=== PATIENT | female | born 1975 | race Caucasian/White ===

== ENCOUNTER 2017-09-07 01:05 | Outpatient (CLI) | payer BC | END 2017-09-07 01:06 | disposition home or self-care (01) | LOC: BICRAD 01:05 | PROVIDERS: ATTEND Internal Medicine Rheumatology | DX: M47.817 Spondylosis without myelopathy or radiculopathy, lumbosacral region (principal); M43.17 Spondylolisthesis, lumbosacral region | CPT/HCPCS: 72100 ==

== ENCOUNTER 2017-11-30 10:21 | Outpatient (CLI) | payer BC | END 2017-11-30 10:22 | disposition home or self-care (01) | LOC: BICRAD 10:21 | PROVIDERS: ATTEND Specialist | DX: M43.17 Spondylolisthesis, lumbosacral region (principal) | CPT/HCPCS: 72100 ==

== ENCOUNTER 2017-12-22 14:42 | Outpatient (CLI) | payer BC ==
--- NOTE | 2017-12-22 15:40 | MRI ---
LUMBAR SPINE MRI WITHOUT CONTRAST: Date: 12/22/17 COMPARISON: None. HISTORY: Bilateral leg pain and weakness, acquired spondylolisthesis of lumbosacral region. TECHNIQUE: Multiplanar, multisequence MR imaging of the lumbar spine is provided without contrast. FINDINGS: The sagittal STIR imaging demonstrates no focal area of osseous marrow edema. At the L5-S1 level, there is anterolisthesis measuring 7-8 mm. Bilateral L5 pars defects are present. Assuming five lumbar-type vertebral bodies, conus medullaris terminates at T12-L1. T12-L1: No central canal or neural foraminal stenosis. Intervertebral disc height and signal intensity within normal limits. L1-2: Intervertebral disc height and signal intensity is within normal limits. No significant central canal or neural foraminal stenosis. L2-3: Intervertebral disc height and signal intensity within normal limits. No central canal or neural fora osvaldo stenosis. L3-4: Mild bilateral facet hypertrophy. No significant central canal or neural foraminal stenosis. L4-5: Bilateral facet hypertrophy and hypertrophy of the ligamentum flavum noted, left greater than right. Intervertebral disc height and signal intensity is within normal limits. There is no significant neur al foraminal stenosis on either side. There is a focus of T2 hyperintensity along the medial aspect o f the facet joint on the left measuring 5-6 mm, which may represent a small synovial cyst. L5-S1: There is disc desiccation and disc space narrowing with minimal disc bulge causing no significant harley tral canal stenosis. There is moderate/severe bilateral neural foraminal stenosis. The imaged retroperitoneal structures demonstrate no acute findings. IMPRESSION: Bilateral L5 pars defects with anterolisthesis of L5 on S1 and bilateral significant L5-S1 neural for aminal stenosis. POS: [facility]
== END 2017-12-22 14:43 | disposition home or self-care (01) ==
LOC: TBSIIMAG 14:42
PROVIDERS: ATTEND Specialist
DX: M43.17 Spondylolisthesis, lumbosacral region (principal); M99.83 Other biomechanical lesions of lumbar region
CPT/HCPCS: 72148

== ENCOUNTER 2018-06-08 07:38 | Outpatient (CLI) | payer BC ==
--- NOTE | 2018-06-08 10:09 | CT ---
CT BRAIN WITHOUT CONTRAST: HISTORY: Frontal headache, presyncope. FINDINGS: No evidence of infarct, hemorrhage, midline shift, or abnormal extraaxial fluid collections are seen. The ventricular size is normal and the basilar cisterns patent. The bony calvarium is intact. The visualized paranasal sinuses and mastoid air cells are well aerated. IMPRESSION: No CT evidence of acute intracranial process. POS: [facility]
== END 2018-06-08 07:39 | disposition home or self-care (01) ==
LOC: BICCT 07:38
PROVIDERS: ATTEND Family Medicine
DX: R55 Syncope and collapse (principal); R51 Headache
CPT/HCPCS: 70450

== ENCOUNTER 2019-05-24 14:27 | Outpatient (CLI) | payer BC ==
--- NOTE | 2019-05-31 13:16 | MMO ---
Bilateral MAMMO Bilat Screen [facility]DI[facility]FUAD. CLINICAL HISTORY: Patient is 43 years old and is seen for screening. The patient has the following family history of breast cancer: mother, at age 66. The patient has no personal history of cancer. VIEWS: The views performed were: bilateral craniocaudal; bilateral craniocaudal with tomosynthesis; bilateral mediolateral oblique; and bilateral mediolateral oblique with tomosynthesis. FILMS COMPARED: The present examination has been compared to a prior imaging study performed at [facility] on 08/24/2015. This study has been interpreted with the assistance of computer-aided detection. MAMMOGRAM FINDINGS: The breasts are almost entirely fat. There are no suspicious masses, suspicious calcifications, or new areas of architectural distortion. IMPRESSION: THERE IS NO MAMMOGRAPHIC EVIDENCE OF MALIGNANCY. A ROUTINE FOLLOW-UP MAMMOGRAM IN 1 YEAR IS RECOMMENDED. THE RESULTS OF THIS EXAM WERE SENT TO THE PATIENT. ACR BI-RADS Category 1 - Negative MAMMOGRAPHY NOTE: 1. A negative mammogram report should not delay a biopsy if a dominant of clinically suspicious mass is present. 2. Approximately 10% to 15% of breast cancers are not detected by mammography. 3. Adenosis and dense breasts may obscure an underlying neoplasm. Reported by: GT BOB MD Electonically Signed: [id number]
== END 2019-05-24 14:28 | disposition home or self-care (01) ==
LOC: BICMAMMO 14:27
PROVIDERS: ATTEND Physician Assistant
DX: Z12.31 Encounter for screening mammogram for malignant neoplasm of breast (principal); Z80.3 Family history of malignant neoplasm of breast
CPT/HCPCS: 77063; 77067

== ENCOUNTER 2019-09-17 15:32 | Emergency (ER) | payer BC ==
--- NOTE | 2019-09-17 16:36 | CT ---
EXAM: CT brain without contrast HISTORY: Fall with head trauma COMPARISON: 06/08/2018 TECHNIQUE: Multiple contiguous axial images were obtained and a CT of the brain without contrast. FINDINGS: The brain is normal in morphology and attenuation without focal lesions or confluent areas of infarction. There is no evidence of hydrocephalus, intracranial hemorrhage, or extra-axial fluid collection. A round well-circumscribed subcutaneous mass is seen in the right parietal scalp. The underlying calv arium is unremarkable. The visualized paranasal sinuses and mastoid air cells are well aerated. IMPRESSION: No evidence of acute intracranial abnormality
== END 2019-09-17 16:49 | disposition home or self-care (01) ==
LOC: ERS 15:32
DX: S00.01XA Abrasion of scalp, initial encounter (principal); I10 Essential (primary) hypertension; F32.9 Major depressive disorder, single episode, unspecified; F98.8 Other specified behavioral and emotional disorders with onset usually occurring in childhood and adolescence; Z79.899 Other long term (current) drug therapy; W19.XXXA Unspecified fall, initial encounter
CPT/HCPCS: 70450

== ENCOUNTER 2019-09-20 15:40 | Outpatient (CLI) | payer BC | END 2019-09-20 15:41 | disposition home or self-care (01) | LOC: CTENTCT 15:40 | PROVIDERS: ATTEND Specialist | DX: J32.8 Other chronic sinusitis (principal) | CPT/HCPCS: 70486 ==

== ENCOUNTER 2020-05-04 16:00 | Inpatient (IN) | payer OTHER ==
[2020-05-06 12:38] VITALS: BMI 68.7
[2020-05-07] MEDS ORDERED: Fentanyl 100 MCG/2 ML VIAL ONE ×3 (06:56→09:58)
[2020-05-07] MEDS ORDERED: Bupivacaine 0.25% HCL 30 ML VIAL ONE (06:57)
[2020-05-07] MEDS ORDERED: Lidocaine 1% w/Epinephrine 1:100K 20 ML VIAL ONE (06:57)
[2020-05-07] MEDS ORDERED: Levofloxacin 500 mg/D5W 100 ml Premix Bag ONE (06:59)
[2020-05-07] MEDS ORDERED: Scopolamine 1.5 mg/72 hour Patch ONE (07:23)
[2020-05-07] MEDS ORDERED: Midazolam HCl 2 mg/2 ml Vial ONE (07:24)
[2020-05-07] MEDS ORDERED: Famotidine/PF 20 mg/2ml Vial ONE ×2 (07:24→07:31)
[2020-05-07] MEDS ORDERED: SUGAMMADEX SODIUM 500 MG/5 ML VIAL ONE ×2 (08:52→08:55)
[2020-05-07] MEDS ORDERED: Ondansetron HCl/PF 4 MG/2 ML Vial IVP PRN (09:09)
[2020-05-07] MEDS ORDERED: Meperidine HCl/PF 25 MG/ML VIAL SLOW IVP PRN (09:09)
[2020-05-07] MEDS ORDERED: diphenhydrAMINE 25 MG CAP PO PRN (10:21)
[2020-05-07] MEDS ORDERED: Ondansetron PF 4 MG/2 ML Vial IVP PRN ×2 (10:21→11:11)
[2020-05-07] MEDS ORDERED: diphenhydrAMINE 50 MG/ML VIAL IM PRN (10:21)
[2020-05-07] MEDS ORDERED: fentaNYL Citrate/PF 2,000 MCG in Sodium Chloride 0.9% 60 ML IV PRN (10:21)
[2020-05-07] MEDS ORDERED: diphenhydrAMINE 50 MG/ML VIAL IVP PRN ×2 (10:21→11:11)
[2020-05-07] MEDS ORDERED: Naloxone HCl 0.4 mg/ml Vial IV PRN (10:21)
[2020-05-07] MEDS ORDERED: Promethazine HCl 25 MG/ML VIAL IM PRN ×2 (10:21→11:11)
[2020-05-07] MEDS ORDERED: Zolpidem Tartrate 5 MG TAB PO PRN (10:21)
[2020-05-07] MEDS ORDERED: Communication Order-Pharmacy FS SCH (10:30)
[2020-05-07] MEDS ORDERED: hydrALAZINE 20 MG/ML VIAL SLOW IVP PRN (11:11)
[2020-05-07] MEDS ORDERED: Albuterol Sulfate 1.25 MG/3 ML NEB INH PRN (11:11)
[2020-05-07] MEDS ORDERED: Dextrose 5% in Water 1,000 ML IV PRN (11:11)
[2020-05-07] MEDS ORDERED: Hydrocodone-Acetamin 15 ML UDCUP PO PRN (11:11)
[2020-05-07] MEDS ORDERED: Dextrose 50% Abboject 50 ML SYRINGE SLOW IVP PRN (11:11)
[2020-05-07] MEDS ORDERED: EPHEDRINE 25 MG/5 ML SYRINGE ONE (11:22)
[2020-05-07] MEDS ORDERED: Ondansetron PF 4 MG/2 ML Vial ONE (11:22)
[2020-05-07] MEDS ORDERED: Dexamethasone 20 MG/5 ML VIAL ONE (11:22)
[2020-05-07] MEDS ORDERED: diphenhydrAMINE 50 MG/ML VIAL ONE (11:22)
[2020-05-07] MEDS ORDERED: Succinylcholine Chloride 20 MG/ML 10 ml SYRINGE FS ONE (11:22)
[2020-05-07] MEDS ORDERED: Ketorolac Tromethamine 30 MG/ML VIAL ONE (11:22)
[2020-05-07] MEDS ORDERED: Rocuronium Bromide 10 MG/ML (10ML VIAL) ONE (11:22)
[2020-05-07] MEDS ORDERED: PROPOFOL 200 MG/20 ML VIAL ONE (11:22)
[2020-05-07] MEDS ORDERED: PHENYLEPHRINE-NS 100 MCG/ML 10 ML SYRINGE ONE (11:22)
--- NOTE | 2020-05-07 11:47 | OP ---
DATE OF PROCEDURE: 05/07/2020 PREOPERATIVE DIAGNOSES: 1. Morbid obesity, body mass index of 68. 2. Hypertension. POSTOPERATIVE DIAGNOSES: 1. Morbid obesity, body mass index of 68. 2. Hypertension. PROCEDURES PERFORMED: 1. Laparoscopic sleeve gastrectomy with [place] staple line reinforcement and 38-Sami bougie. 2. Esophagogastroduodenoscopy. ANESTHESIA: General. ESTIMATED BLOOD LOSS: 50 mL. COMPLICATIONS: None. FINDINGS: Normal postoperative EGD. TECHNIQUE: The patient was taken to the operating room and laid supine on the operating room table. After general anesthetic was obtained, arms and legs were double strapped to bariatric table. The abdomen was shaved, prepped, and draped in a sterile fashion. OG tube had been used to decompress the stomach. Left subcostal 5-mm Optiview trocar placed in usual fashion. High-flow pneumoperitoneum was obtained. Left and right abdominal 12 mm ports as well as a right subcostal 5-mm port were placed under direct visualization. Alexus was brought in through 5-mm incision that was made at the xiphoid and used to raise the liver off the GE junction. Short gastrics were taken down from mid body of stomach to left berto of diaphragm using the LigaSure. The posterior fundus, angle of His, and left berto were completely dissected. Short gastrics were then taken down to a distance of 6 cm proximal to the pylorus. OG tube was removed, and 38 bougie was brought and its tip left in the antrum of the stomach. Multiple loads of [place] stapling device was used to form the sleeve. The 1st was fired up at a distance of 6 cm proximal to the pylorus, angled up towards the incisura. Multiple loads were then fired up along the bougie. Stomach was completely transected at the angle of His. The stomach was removed from the left abdominal incision and the fascial defect was closed using GraNee needle and 0 Vicryl tie. A few bleeders on the staple line were clipped using laparoscopic clip. EGD scope was passed through the esophagus, stomach to the level of duodenum without obstruction. There was no air leakage or bleeding on the staple line. No stricture at the incisura or involvement of the GE junction with the staple line. EGD scope was used to decompress the stomach and was pulled and removed. Alexus removed without injury. All port sites were infiltrated and with local anesthetic and removed under direct visualization without bleeding. Pneumoperitoneum was let down. Vicryl was used to close the fascial defect from the left abdominal incisions. All incisions were irrigated and closed using 4-0 Monocryl and Dermabond. The patient was sent to Recovery in stable condition. All instrument counts, needle counts, and lap counts were correct. Job ID: [id number]
[2020-05-07] MEDS: D5 1/2 NS w/20 mEq KCL 1,000 ML IV SCH ×3 (12:52→20:14)
[2020-05-07] MEDS: Nabumetone 500 MG TAB PO SCH (20:15)
[2020-05-07] MEDS ORDERED: Enoxaparin Sodium 40 MG/0.4 ML SYRINGE SC SCH (21:00)
[2020-05-08 05:18] LABS: #Lymphocytes 1.7 thou/uL (1.20-3.40); #Monocytes 0.6 thou/uL (0.11-0.59); #Neutrophils 9.1 thou/uL (1.40-6.50); %Basophils 0.1 % (0.0-1.0); %Eosinophils 0.1 % (0.0-10.0); %Lymphocytes 14.7 % (21.0-51.0); %Monocytes 5.5 % (0.0-10.0); %Neutrophils 79.6 % (42.0-75.0); Hemoglobin 12.8 g/dL (12.0-16.0); Mean Corpuscular Hemoglobin 30.2 pg (27.0-31.0); Mean Corpuscular Volume 94.4 fL (78.0-98.0); Mean Platelet Volume 8.2 fL (7.4-10.4); Platelet Count 343 thou/uL (130-400); RBC Distribution Width 12.8 % (11.5-14.5); Red Blood Cell (RBC) Count 4.25 mill/uL (4.20-5.40); White Blood Cell (WBC) Count 11.5 thou/uL (4.8-10.8)
[2020-05-08 05:39] LABS: Anion Gap 13 mmol/L (10-20); BUN (Urea Nitrogen) 7 mg/dL (7.0-18.7); Calc. Creatinine Clearance 238 mL/min (70-130); Carbon Dioxide 24 mmol/L (22-29); Chloride 104 mmol/L (98-107); Estimated GFR-MDRD 74; Glucose 129 mg/dL (70-105); Potassium 4.7 mmol/L (3.5-5.1); Sodium 136 mmol/L (136-145)
--- NOTE | 2020-05-08 08:33 | DIS ---
DATE OF ADMISSION: 05/07/2020 DATE OF DISCHARGE: 05/08/2020 ADMITTING DIAGNOSIS: Morbid obesity. DISCHARGE DIAGNOSIS: Morbid obesity. PROCEDURE PERFORMED: Laparoscopic sleeve by Dr. Richardson without complication. CONDITION ON DISCHARGE: Improved. STAFF: lA Richardson MD HOSPITAL COURSE: On postop day #1, the patient is tolerating liquids. She has minimal pain. No nausea. She was discharged to home. She will follow up with me in 2 weeks. Job ID: [id number]
[2020-05-08] MEDS ORDERED: Losartan 25 MG TAB PO SCH (09:00)
[2020-05-08] MEDS ORDERED: Pantoprazole 40 MG VIAL IVP SCH (09:00)
[2020-05-08] MEDS ORDERED: Nebivolol HCl 5 MG TAB PO SCH (09:00)
[2020-05-08] MEDS ORDERED: DULoxetine 60 MG CAP PO SCH (09:00)
[2020-05-08] MEDS: Nabumetone 500 MG TAB PO SCH (09:15)
[2020-05-08 12:07] VITALS: BP 131/77; TEMP 97.9
== END 2020-05-08 12:15 | disposition home or self-care (01) | DRG 621 ==
LOC: SURG A 05-07 05:39 → SJJU 05-07 11:53
PROVIDERS: ADMIT Surgery; ATTEND Surgery
PROC: 0DB64Z3 Excision of Stomach, Percutaneous Endoscopic Approach, Vertical (ICD-10-PCS; principal; 2020-05-07)
PROC: 0DJ08ZZ Inspection of Upper Intestinal Tract, Via Natural or Artificial Opening Endoscopic (ICD-10-PCS; 2020-05-07)
DX: E66.01 Morbid (severe) obesity due to excess calories (principal); I10 Essential (primary) hypertension; M19.90 Unspecified osteoarthritis, unspecified site; M79.7 Fibromyalgia; F32.9 Major depressive disorder, single episode, unspecified; Z88.0 Allergy status to penicillin; Z68.44 Body mass index [BMI] 60.0-69.9, adult
CPT/HCPCS: 36415; 80048; 85025; 88307; 88312; 94760; C9113; J1100; J1200; J1650; J1885; J1956; J2250; J2405; J2704; J3010; J3480; S0020; S0028

== ENCOUNTER 2020-05-21 15:49 | Day surgery (SDC) | payer BC ==
[2020-05-21] MEDS ORDERED: Ondansetron PF 4 MG/2 ML Vial IVP PRN (16:05)
[2020-05-21] MEDS ORDERED: Sodium Chloride 0.9% 1,000 ML IV SCH (16:15)
[2020-05-21] MEDS ORDERED: Multivitamins, Adult 10 ML, Thiamine HCl 100 MG in Sodium Chloride 0.9% 1,000 ML IV SCH (16:15)
[2020-05-21] MEDS ORDERED: Sodium Chloride 0.9% 20 ML ONE (16:22)
[2020-05-21 16:35] VITALS: BP 125/72; TEMP 98
== END 2020-05-21 18:30 | disposition home or self-care (01) ==
LOC: ONC/OP 15:49
PROVIDERS: ATTEND Surgery
DX: E86.0 Dehydration (principal); Z88.0 Allergy status to penicillin
CPT/HCPCS: 96361; 96365; 96366; J3411; J7050

== ENCOUNTER 2020-06-10 09:43 | Emergency (ER) | payer BC ==
[2020-06-10 11:11] LABS: #Basophils 0.1 thou/uL (0.0-0.2); #Eosinphils 0.3 thou/uL (0.0-0.7); #Monocytes 0.4 thou/uL (0.11-0.59); #Neutrophils 4.2 thou/uL (1.40-6.50); %Basophils 1.1 % (0.0-1.0); %Eosinophils 4.2 % (0.0-10.0); %Lymphocytes 28.6 % (21.0-51.0); %Monocytes 6.1 % (0.0-10.0); %Neutrophils 60.1 % (42.0-75.0); Hemoglobin 13.9 g/dL (12.0-16.0); Mean Corpuscular HGB CONC 32.8 g/dL (32.0-36.0); Mean Corpuscular Hemoglobin 30.5 pg (27.0-31.0); Mean Corpuscular Volume 92.9 fL (78.0-98.0); Mean Platelet Volume 8.7 fL (7.4-10.4); Platelet Count 280 thou/uL (130-400); RBC Distribution Width 12.9 % (11.5-14.5); Red Blood Cell (RBC) Count 4.56 mill/uL (4.20-5.40); White Blood Cell (WBC) Count 6.9 thou/uL (4.8-10.8)
[2020-06-10 12:10] LABS: INR-International Normal Ratio 1.1; Prothrombin Time 14.2 sec (12.0-14.7)
[2020-06-10 12:17] LABS: Pregs Control Background? CLEAR/WHITE (CLR/WHITE); Pregs Control Bar Appear? YES (CONTROL BAR)
[2020-06-10 12:18] LABS: BHCG - Serum Negative (NEGATIVE)
[2020-06-10 12:25] LABS: ALT (SGPT) 34 U/L (8-55); AST (SGOT) 37 U/L (5-34); Albumin 3.8 g/dL (3.5-5.0); Alkaline Phosphatase 69 U/L (40-110); Anion Gap 17 mmol/L (10-20); BUN (Urea Nitrogen) 8 mg/dL (7.0-18.7); Bilirubin, Total 0.3 mg/dL (0.2-1.2); Calc. Creatinine Clearance 0 mL/min (70-130); Calcium 9.3 mg/dL (7.8-10.44); Carbon Dioxide 23 mmol/L (22-29); Chloride 103 mmol/L (98-107); Estimated GFR-MDRD 80; Globulin 3.2 g/dL (2.4-3.5); Glucose 84 mg/dL (70-105); Potassium 3.9 mmol/L (3.5-5.1); Sodium 139 mmol/L (136-145)
== END 2020-06-10 13:29 | disposition home or self-care (01) ==
LOC: ERS 09:43
DX: N92.0 Excessive and frequent menstruation with regular cycle (principal); M79.7 Fibromyalgia; M19.90 Unspecified osteoarthritis, unspecified site; I10 Essential (primary) hypertension; F32.9 Major depressive disorder, single episode, unspecified; F98.8 Other specified behavioral and emotional disorders with onset usually occurring in childhood and adolescence
CPT/HCPCS: 36415; 80053; 84703; 85025; 85610; 85730; 86850; 86900; 86901; 99284

== ENCOUNTER 2022-07-12 08:25 | Emergency (ER) | payer BC ==
[2022-07-12] MEDS ORDERED: Ketorolac Tromethamine 30 MG/ML VIAL ONE (09:42)
[2022-07-12] MEDS ORDERED: Acetaminophen 500 MG TAB ONE (09:42)
== END 2022-07-12 10:09 | disposition home or self-care (01) ==
LOC: ERS 08:25
DX: M25.561 Pain in right knee (principal); I10 Essential (primary) hypertension; W19.XXXA Unspecified fall, initial encounter; Y93.01 Activity, walking, marching and hiking
CPT/HCPCS: 96372; J1885